=== PATIENT | male | born 1990 | race Two or more races ===

== ENCOUNTER 2024-10-27 16:14 | Emergency (ER) | payer MEDICAID, SELFPAY ==
[2024-10-27 16:36] VITALS: BP 134/82; PULSE 100; RESP 18; TEMP 37.7; O2SAT 95
--- NOTE | 2024-10-27 16:55 | EDNOTE_ITS ---
ED Dental RME/HPI General Chief complaint: Dental/Oral/Throat Stated complaint: THROAT PAIN, CLOGGED EARS, FEVER Time Seen by Provider: 10/27/24 16:39 Arrival date/time: 10/27/24 16:14 This is a 34-year-old male that comes in with complaints of throat pain and feeling like his ears are clogged. Patient states that he has had chronic throat infections in the past. Patient denies fever or chills. Patient was recently seen by his primary provider and was given as Zyrtec and promethazine for the cough. Patient denies any past medical history Related Data Previous Rx's ?Medication ?Instructions ?Recorded acetaminophen 300 mg-codeine 30 mg 1 tab PO Q12H #10 t abs 03/17/19 tablet (Tylenol-Codeine #3) cetirizine 5 mg-pseudoephedrine ER 1 tab PO Q12H #14 t abs 03/17/19 120 mg tablet,extended release,12hr (Zyrtec-D) hydrocodone 5 mg-acetaminophen 325 1 tab PO BID PRN pa in #10 tabs 04/27/ mg tablet azithromycin 250 mg tablet See Rx Instructions PO .COM PLEX #6 10/27/24 tabs ibuprofen 800 mg tablet 800 mg PO Q6H PRN pain #14 t abs 10/27/24 Allergies Allergy/AdvReac Type Severity Reaction Status Date / Time Penicillins Allergy Unknown Rash Verified 10/27/24 16:17 Course Orders Category Date Time Status 1,000 mg IM w/Lido* 1% Med 10/27/24 16:53 Ordered cefTRIAXone [Rocephin] 1,000 mg Lidocaine 1% 20 ml [Xylocaine 1% 20 ML] 2.1 ml IM X1 Acetaminophen Tab [Tylenol ES Tab] Med 10/27/24 16:53 Once 1,000 mg PO X1 ONE Dexamethasone Inj [Decadron Inj] Med 10/27/24 16:53 Once 10 mg PO X1 ONE Ibuprofen Tab [Motrin Tab] Med 10/27/24 16:53 Once 800 mg PO X1 ONE Vital Signs Vital signs: Vital Signs Temperature 99.8 F 10/27/24 16:36 Pulse Rate 100 10/27/24 16:36 Respiratory Rate 18 10/27/24 16:36 Blood Pressure 134/82 H 10/27/24 16:36 Pulse Oximetry (%) 95 10/27/24 16:36 Oxygen Delivery Method Room Air 10/27/24 16:36 Dental / Oral MDM Narrative MDM Narrative:: Will treat for pharyngitis/tonsillitis. I spoke to patient and at length that if this continues to happen he will need to be seen by a ear nose and throat doctor. Family verbalized understanding. Will treat patient with a dose of Rocephin, ibuprofen, Tylenol, and Decadron. Will send patient home with Zithromax. Discharge Plan Plan Patient Disposition: HOME (Self Care) Patient condition on transfer: Stable Prescriptions/Referrals Prescriptions/Med Rec: New azithromycin 250 mg tablet See Rx Instructions .ROUTE .COMPLEX Qty: 6 0RF Rx Instructions: For 250 mg dose pack: take 500 mg today (day 1), then 250 mg for 4 days (days 2-5) ibuprofen 800 mg tablet 800 mg PO Q6H PRN (Reason: pain) Qty: 14 0RF No Action cetirizine-pseudoephedrine [Zyrtec-D] 5-120 mg tablet extended release 12 hr 1 tab PO Q12H Qty: 14 0RF acetaminophen-codeine [Tylenol-Codeine #3] 300-30 mg tablet 1 tab PO Q12H Qty: 10 0RF hydrocodone-acetaminophen 5-325 mg tablet 1 tab PO BID MDD 10 PRN (Reason: pain) Qty: 10 0RF Problem List Clinical Impression: Pharyngitis, Acute tonsillitis Patient/Caregiver Discharge Instructions Discharge Activity: activity as tolerated Education Materials: Tonsillitis in Adults Additional Instructions: Follow up with primary provider in 1-2 days. Come back to ED if symptoms change or worsen Print Language: Prydeinig Stand Alone Forms: Mariah Award Info., Patient Portal Info Letter PA/SHIPPING AND RECEIVING COORDINATOR Supervising Physician PA/SHIPPING AND RECEIVING COORDINATOR Supervising Physician: [email or web address]
[2024-10-27] MEDS: DEXAMETHASONE SOD PHOS INJ 10 MG/ML VIAL PO (17:14)
[2024-10-27] MEDS: cefTRIAXone 1,000 MG, LIDOCAINE 1% 20 ML 2.1 ML IM (17:15)
[2024-10-27] MEDS: IBUPROFEN TAB 400 MG TABLET 800 MG PO (17:15)
[2024-10-27] MEDS: ACETAMINOPHEN 500 MG TABLET 1000 MG PO (17:16)
[2024-10-27 17:59] VITALS: BP 124/83; PULSE 92; RESP 19; TEMP 37.3; O2SAT 95
== END 2024-10-27 18:22 | disposition home or self-care (01) ==
LOC: SERX 17:36
PROVIDERS: Emergency Provider Emergency Medicine; PCP Registered Nurse Community Health
DX: J03.90 Acute tonsillitis, unspecified (principal)
CPT/HCPCS: 96372; 99283; J0696; J1100; J3490; A9270